=== PATIENT | female | born 1985 | race African-American/Black ===

== ENCOUNTER 2016-08-25 16:12 | Emergency (ER) | payer SELFPAY ==
[~2016-08-25] VITALS: Ht 160 cm; Wt 79.0 kg
[2016-08-25 16:14] VITALS: BP 123/74; PULSE 92; RESP 14; TEMP 98.1; O2SAT 100
[2016-08-25 17:27] LABS: AUTOMATED NEUTROPHIL # 6.5 TH/MM3 (1.8-7.7); BASOPHIL # 0.1 TH/MM3 (0-0.2); BASOPHIL % 0.6 % (0.0-2.0); EOSINOPHIL # 0.3 TH/MM3 (0-0.4); EOSINOPHIL % 2.4 % (0.0-4.0); HEMATOCRIT 36.4 % (35.0-46.0); HEMO FLAGS DIFF FINAL; LYMPH % 30.6 % (9.0-44.0); LYMPHOCYTE # 3.5 TH/MM3 (1.0-4.8); MEAN CELL VOLUME 86.9 FL (80.0-100.0); MEAN CORPUSCULAR HEMOGLOBIN 28.1 PG (27.0-34.0); MEAN CORPUSCULAR HGB CONC 32.3 % (32.0-36.0); NEUT % 56.4 % (16.0-70.0); PLATELET COUNT 281 TH/MM3 (150-450); RED BLOOD COUNT 4.19 MIL/MM3 (4.00-5.30); RED CELL DISTRIBUTION WIDTH 13.2 % (11.6-17.2); WHITE BLOOD COUNT 11.6 TH/MM3 (4.0-11.0)
[2016-08-25 17:30] LABS: BACTERIA, URINE OCC /hpf; BLOOD, URINE LARGE (NEG); COMMENT (UR) CULT NOT INDICATED; CULTURE IF INDICATED CULT NOT INDICATED; GLUCOSE,URINE NEG (NEG); KETONE, URINE NEG (NEG); MUCUS URINE FEW /lpf (OCC); NITRITE,URINE NEG (NEG); SQUAMOUS EPITHELIAL CELL URINE 9 /hpf (0-5); URINE COLOR YELLOW (YELLW/STRAW)
--- NOTE | 2016-08-25 17:33 | PD ---
HPI Chief Complaint: Related Problem Time Seen by Provider: 17:29 Travel History International Travel<30 days: No Contact w/Intl Traveler<30days: No Traveled to known affect area: No History of Present Illness HPI 31-year-old female that presents to the ED for evaluation of bleeding and back pain for the past 2 days and . Per patient for last menstrual period was in mid June. Per patient she was late on her period and she did apparently test that was positive today. Per patient she started bleeding yesterday. Per patient she had a miscarriage of twins about a year ago. Per patient she is concerned she might have the same today. Per patient bleeding yesterday was small but today's more. She denies any clots. She denies any chest pain or shortness of breath. Per patient the back pain is like an ache and she took some Advil to help with the pain as she didn't know she was . She has not seen anybody for this. The pain is 3 out of 10. No urinary symptoms. No bowel movement issues. Allergies to peanuts. Nothing makes the pain better or worse. PFSH Past Medical History ?: LMP: 07/13/16 Social History Alcohol Use: No Tobacco Use: No Substance Use: No Allergies-Medications (Allergen,Severity, Reaction): Coded Allergies: PEANUTS (Verified Allergy, Unknown, 08/25/16) Review of Systems General / Constitutional: No: Fever, Chills, Weight Gain, Weight Loss, Other Eyes: No: Diploplia, Blurred Vision, Photophobia, Drainage, Redness, Foreign Body Sensation, Pain, Tearing, Blind Spots, Visual changes, Blindness, Other HENT: No: Headaches, Vertigo, Lightheadedness, Sore Throat, Rhinitis, Rhinorrhea, Congestion, Nosebleed, Neck Stiffness, Neck Pain, Masses, Gingival Bleeding, Dental Difficulties, Ear Discharge, Earache, Other Cardiovascular: No: Chest Pain or Discomfort, Palpitations, Irregular Rhythm, Tachycardia, Diaphoresis, Syncope, Dyspnea on exertion, Varicosities, Edema, Cyanosis, Varicosities, Phlebitis, Claudication, Other Respiratory: No: Cough, Shortness of Breath, Wheezing, Sneezing, Orthopnea, Hemoptysis, Stridor, Night Sweats, Pleuritic Pain, Other Gastrointestinal: No: Nausea, Vomiting, Diarrhea, Abdominal Pain, Hematemesis, Hematochezia, Constipation, Changes in Bowel Habits, Indigestion, Dysphagia, Loss of Appetite, Other Genitourinary: Positive: Pelvic Pain, Vaginal Bleeding, No: Urgency, Frequency , Dysuria, Nocturia, Hematuria, Decreased Urinary Output, Oliguria, Hesitancy, Dribbling, Incontinence, Flank Pain, Dyspareunia, Discharge, Dysmenorrhea, Menorrhagia, Metorrhagia, Other Musculoskeletal: No: Myalgias, Arthralgias, Limited ROM, Weakness, Cramping, Edema, Pain, Atrophy, Other Skin: No Rash, No Itching, No Dryness, No Lumps, No Hives, No Change in Pigmentation, No Change in nails, No Alopecia, No Lesions, No Breast Lumps, No Breast Tenderness, No Breast Swelling, No Other Neurologic: No: Weakness, Dizziness, Syncope, Focal Abnormalities, Coordination Problem, Tremor, Ataxia, Headache, Change in Mentation, Slurred Speech, Paresthesia, Incontinence, Seizures, Sensory Disturbance, Other Psychiatric: No: Anxiety, Depression, Suicidal Ideations, Disorder of Thought, Mood Disorder, Substance Abuse, Homicidal Ideation, Other Endocrine: No: Heat Intolerance, Cold Intolerance, Polyuria, Polydipsia, Other Hematologic/Lymphatic: No: Easy Bruising, Lymph Node Enlargement, Other Physical Exam Narrative GENERAL: SKIN: Warm and dry. HEAD: Atraumatic. Normocephalic. EYES: Pupils equal and round. No scleral icterus. No injection or drainage. ENT: No nasal bleeding or discharge. Mucous membranes pink and moist. Tongue is midline. No blood deviation. NECK: Trachea midline. No JVD. CARDIOVASCULAR: Regular rate and rhythm. No murmurs, S3, S4. RESPIRATORY: No accessory muscle use. Clear to auscultation. Breath sounds equal bilaterally. GASTROINTESTINAL: Abdomen soft, non-tender, nondistended. Hepatic and splenic margins not palpable. MUSCULOSKELETAL: Extremities without clubbing, cyanosis, or edema. No obvious deformities. Full range of motion of the upper and lower extremities bilaterally. 2+ pulses bilaterally. NEUROLOGICAL: Awake and alert. No obvious cranial nerve deficits. Motor grossly within normal limits. Five out of 5 muscle strength in the arms and legs. Normal speech. PSYCHIATRIC: Appropriate mood and affect; insight and judgment normal. Data Data Last Documented VS Vital Signs Date Time Temp Pulse Resp B/P Pulse Ox O2 Delivery O2 Flow Rate FiO2 08/25/16 18:39 78 18 121/71 98 Room Air 08/25/16 16:14 98.1 Orders Beta Hcg (Quant/Titer) (08/25/16 16:50) Complete Blood Count With Diff (08/25/16 16:50) Basic Metabolic Panel (Bmp) (08/25/16 16:50) Type And Screen (08/25/16 16:50) Us Pelvis (Ques Pr/Ect)W Trans (08/25/16 ) Urinalysis - C+S If Indicated (08/25/16 16:50) Ed Urine Pregnancytest Poc (08/25/16 16:50) Ceftriaxone Inj (Rocephin Inj) (08/25/16 18:15) Labs Laboratory Tests Test 08/25/16 08/25/16 17:08 17:15 Urine Color YELLOW Urine Turbidity HAZY Urine pH 6.0 Urine Specific [place] 1.019 Urine Protein TRACE mg/dL Urine Glucose (UA) NEG mg/dL Urine Ketones NEG mg/dL Urine Occult Blood LARGE Urine Nitrite NEG Urine Bilirubin NEG Urine Urobilinogen LESS THAN 2.0 MG/DL Urine Leukocyte Esterase SMALL Urine RBC /hpf Urine WBC 8 /hpf Urine Squamous Epithelial 9 /hpf Cells Urine Bacteria OCC /hpf Urine Mucus FEW /lpf Microscopic Urinalysis Comment CULT NOT INDICATED White Blood Count 11.6 TH/MM3 Red Blood Count 4.19 MIL/MM3 Hemoglobin 11.8 GM/DL Hematocrit 36.4 % Mean Corpuscular Volume 86.9 FL Mean Corpuscular Hemoglobin 28.1 PG Mean Corpuscular Hemoglobin 32.3 % Concent Red Cell Distribution Width 13.2 % Platelet Count 281 TH/MM3 Mean Platelet Volume 9.3 FL Neutrophils (%) (Auto) 56.4 % Lymphocytes (%) (Auto) 30.6 % Monocytes (%) (Auto) 10.0 % Eosinophils (%) (Auto) 2.4 % Basophils (%) (Auto) 0.6 % Neutrophils # (Auto) 6.5 TH/MM3 Lymphocytes # (Auto) 3.5 TH/MM3 Monocytes # (Auto) 1.2 TH/MM3 Eosinophils # (Auto) 0.3 TH/MM3 Basophils # (Auto) 0.1 TH/MM3 CBC Comment DIFF FINAL Differential Comment Sodium Level 135 MEQ/L Potassium Level 3.5 MEQ/L Chloride Level 102 MEQ/L Carbon Dioxide Level 25.5 MEQ/L Anion Gap 8 MEQ/L Blood Urea Nitrogen 12 MG/DL Creatinine 0.97 MG/DL Estimat Glomerular Filtration 80 ML/MIN Rate Random Glucose 79 MG/DL Calcium Level 9.1 MG/DL Human Chorionic Gonadotropin, 2128 MIU/ML Quant Blood Type O POSITIVE Antibody Screen NEGATIVE Blood Bank Comment MDM Medical Decision Making Medical Screen Exam Complete: Yes Emergency Medical Condition: Yes Medical Record Reviewed: Yes Interpretation(s) CBC & BMP Diagram 08/25/16 17:15 Beta of 1999. Last Impressions Pelvis Ultrasound 08/25/16 0000 Signed Impressions: Service Date/Time: Thursday, August 25, 2016 17:38 - CONCLUSION: Intrauterine gestational sac containing a pole as described above. Heart motion cannot be detected. Short-term followup is recommended. No evidence of complex adnexal masses. Shakeel Arnold MD UA shows signs of UTI Differential Diagnosis Bleeding versus miscarriage versus bleeding during versus back pain versus UTI Narrative Course 31-year-old female that presents to the ED for evaluation of bleeding and possible . Patient was properly examined and was found to have signs and symptoms consistent with with bleeding. Concern for miscarriage. Patient has had this in the past. Labs and imaging ordered. Labs and imaging were essentially unremarkable other than for . Ultrasound did show IUP but no obvious heart rate noted. Case was discussed in my attending who agrees with plan. Recommendation is for patient to come back in 2 days for recheck. Patient agrees to this. Patient will be given prescription for Keflex for her UTI. Told to take Tylenol for pain. See ED for any worsening symptoms. Follow up with TECHNOLOGY INTEGRATION SPECIALIST. Diagnosis Primary Impression: First trimester bleeding Patient Instructions: General Instructions Additional Instructions: Get recheck of blood BETAHCG in 2 days for reevaluation. Only take Tylenol. vitamins. Take medication as prescribed. See ED for any worsening symptoms. Med/Other Pt SpecificInfo: Prescription(s) given Disposition: 01 DISCHARGE HOME Condition: Stable Yfn Watson Aug 25, 2016 17:33
[2016-08-25 17:42] LABS: BICARBONATE 25.5 MEQ/L (21.0-32.0); POTASSIUM 3.5 MEQ/L (3.5-5.1)
[2016-08-25] MEDS ORDERED: cefTRIAXone INJ 1,000 MG in SODIUM CHLORIDE 0.9% INJ 100 ML IV ONE (18:15)
[2016-08-25 18:39] VITALS: BP 121/71; PULSE 78; RESP 18; O2SAT 98
--- NOTE | 2016-08-25 19:06 | RADRPT ---
EXAM DATE/TIME: 08/25/2016 17:38 [facility] COMPARISON: No previous studies available for comparison. INDICATIONS : Bleeding. LAB(S): Beta-hC MEDICAL HISTORY : . SURGICAL HISTORY : None. ENCOUNTER: Initial ACUITY: 1 day PAIN SCORE: 7/10 LOCATION: Bilateral pelvis MEASUREMENTS: UTERUS: 8.1 x 4.7 x 4.5 cm ENDOMETRIAL STRIPE: 19 mm RIGHT OVARY: 2.8 x 1.9 x 1.8 cm LEFT OVARY: 2.3 x 1.2 x 1.1 cm FINDINGS: Intrauterine gestational sac containing a pole is identified. The crown-rump length is 0.57 cm compatible with a gestational age of 6 weeks and 2 days. heart motion could not be detected. Ovaries are unremarkable. No significant fluid is seen in the cul-de-sac. CONCLUSION: Intrauterine gestational sac containing a pole as described above. Heart motion cannot be detected. Short-term followup is recommended. No evidence of complex adnexal masses. Shakeel Arnold MD on August 25, 2016 at 19:00 Board Certified Radiologist. This report was verified electronically.
[2016-08-25] MEDS ORDERED: CEPH-460 PO (19:58)
== END 2016-08-25 21:29 | disposition home or self-care (01) ==
LOC: NEPE 16:12
DX: O46.91 Antepartum hemorrhage, unspecified, first trimester (principal); M54.9 Dorsalgia, unspecified; Z3A.00 Weeks of gestation of pregnancy not specified
CPT/HCPCS: 76700; 76817; 80048; 81001; 84702; 84703; 85025; 86850; 86900; 86901; 96374; 99284; J0696

== ENCOUNTER 2016-09-29 11:05 | Emergency (ER) | payer SELFPAY ==
[~2016-09-29] VITALS: Ht 160 cm; Wt 78.0 kg
[~2016-09-29 11:05] MED LIST: CEPH-460 PO
[2016-09-29 11:07] VITALS: BP 126/78; PULSE 70; RESP 20; TEMP 97.9; O2SAT 100
--- NOTE | 2016-09-29 11:47 | PD ---
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 NO F/C, NO N/V. NO ABD OR PELVIC PAIN. VSS. AWAITING BED PLACEMENT. Data Data Last Documented VS Vital Signs Date Time Temp Pulse Resp B/P Pulse Ox O2 Delivery O2 Flow Rate FiO2 09/29/16 11:07 97.9 70 20 126/78 100 Room Air [facility] Medical Record Reviewed: Yes Supervised Visit with RODRIGO: Yes Mehdi Lovett Sep 29, 2016 11:47
--- NOTE | 2016-09-29 15:12 | PD ---
HPI Chief Complaint: Related Problem Time Seen by Provider: 14:57 Travel History International Travel<30 days: No Contact w/Intl Traveler<30days: No Traveled to known affect area: No History of Present Illness HPI The patient was seen and examined in the presence of the nurse. This patient complains of vaginal spotting. Duration is one day. He is not having pelvic pain or presyncopal symptoms. She thinks that she is 12 weeks , she is missed 3 menstrual periods. She is not had any care. She is from [place] and heading back there later this month. Severity is mild. No alleviating factors. PFSH Past Medical History Diminished Hearing: No Tetanus Vaccination: > 5 Years Influenza Vaccination: Yes ?: : 2 : 1 Past Surgical History Gynecologic Surgery: Yes Social History Alcohol Use: No Tobacco Use: No Substance Use: No Allergies-Medications (Allergen,Severity, Reaction): Coded Allergies: PEANUTS (Verified Allergy, Severe, itching, 09/29/16) Reported Meds & Prescriptions Reported Meds & Active Scripts Active No Active Prescriptions or Reported Medications Review of Systems General / Constitutional: No: Fever Eyes: No: Visual changes HENT: No: Headaches Cardiovascular: No: Chest Pain or Discomfort Respiratory: No: Shortness of Breath Gastrointestinal: No: Abdominal Pain Genitourinary: Positive: Vaginal Bleeding, No: Dysuria Musculoskeletal: No: Pain Skin: No Rash Neurologic: No: Weakness Psychiatric: No: Depression Endocrine: No: Polydipsia Hematologic/Lymphatic: No: Easy Bruising Physical Exam Narrative GENERAL: Well-nourished, well-developed patient in no apparent distress. SKIN: Focused skin assessment reveals no rash and nodules. Skin is Warm and dry. HEAD: Atraumatic. Normocephalic. EYES: Pupils equal and round. No scleral icterus. No injection or drainage. ENT: No nasal bleeding or discharge. Mucous membranes pink and moist. NECK: Trachea midline. No JVD. CARDIOVASCULAR: Regular rate and rhythm. No murmur appreciated. RESPIRATORY: No accessory muscle use. Clear to auscultation. Breath sounds equal bilaterally. GASTROINTESTINAL: Abdomen soft, non-tender, nondistended. Hepatic and splenic margins not palpable. MUSCULOSKELETAL: No obvious deformities. No clubbing. No cyanosis. No edema. NEUROLOGICAL: Awake and alert. No obvious cranial nerve deficits. Motor grossly within normal limits. Normal speech. PSYCHIATRIC: Appropriate mood and affect; insight and judgment normal. Data Data Last Documented VS Vital Signs Date Time Temp Pulse Resp B/P Pulse Ox O2 Delivery O2 Flow Rate FiO2 09/29/16 14:59 17 09/29/16 11:07 97.9 70 126/78 100 Room Air Orders Iv Access Insert/Monitor (09/29/16 15:23) Complete Blood Count With Diff (09/29/16 15:23) Beta Hcg (Quant/Titer) (09/29/16 15:23) Labs Laboratory Tests Test 09/29/16 15:25 White Blood Count 10.8 TH/MM3 Red Blood Count 4.66 MIL/MM3 Hemoglobin 13.0 GM/DL Hematocrit 40.7 % Mean Corpuscular Volume 87.3 FL Mean Corpuscular Hemoglobin 27.9 PG Mean Corpuscular Hemoglobin 32.0 % Concent Red Cell Distribution Width 12.9 % Platelet Count 271 TH/MM3 Mean Platelet Volume 10.3 FL Neutrophils (%) (Auto) 56.7 % Lymphocytes (%) (Auto) 28.6 % Monocytes (%) (Auto) 10.8 % Eosinophils (%) (Auto) 3.3 % Basophils (%) (Auto) 0.6 % Neutrophils # (Auto) 6.1 TH/MM3 Lymphocytes # (Auto) 3.1 TH/MM3 Monocytes # (Auto) 1.2 TH/MM3 Eosinophils # (Auto) 0.4 TH/MM3 Basophils # (Auto) 0.1 TH/MM3 CBC Comment DIFF FINAL Differential Comment Human Chorionic Gonadotropin, LESS THAN 1 Quant MIU/ML MDM Medical Decision Making Medical Screen Exam Complete: Yes Emergency Medical Condition: Yes Medical Record Reviewed: Yes Differential Diagnosis Ectopic , threatened , spontaneous miscarriage Narrative Course I have reviewed the patient's electronic medical record. Patient was here June 24, 2017 and had an Rh of O+. She also had an ultrasound revealing an intrauterine pole but no heart rate could be detected. She was supposed to come back in 2 days but she never did. Beta titer was 2128 at that time IV placed CBC is normal Beta titer is less than 1 I did a bedside transabdominal ultrasound prior to the lab studies being done.. I could not definitively identify an intrauterine fetus. 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 Diagnosis Primary Impression: Spontaneous miscarriage Additional Impression: Vaginal bleeding Additional Instructions: The patient was advised to follow up with their physician and return if they worsen. Med/Other Pt SpecificInfo: Other Scripts No Active Prescriptions or Reported Meds Disposition: 01 DISCHARGE HOME Condition: Stable Lui Mccollum MD Sep 29, 2016 15:12
[2016-09-29 16:07] LABS: AUTOMATED NEUTROPHIL # 6.1 TH/MM3 (1.8-7.7); BASOPHIL # 0.1 TH/MM3 (0-0.2); BASOPHIL % 0.6 % (0.0-2.0); EOSINOPHIL # 0.4 TH/MM3 (0-0.4); EOSINOPHIL % 3.3 % (0.0-4.0); HEMATOCRIT 40.7 % (35.0-46.0); HEMO FLAGS DIFF FINAL; LYMPH % 28.6 % (9.0-44.0); LYMPHOCYTE # 3.1 TH/MM3 (1.0-4.8); MEAN CELL VOLUME 87.3 FL (80.0-100.0); MEAN CORPUSCULAR HEMOGLOBIN 27.9 PG (27.0-34.0); MONO % 10.8 % (0.0-8.0); NEUT % 56.7 % (16.0-70.0); PLATELET COUNT 271 TH/MM3 (150-450); RED BLOOD COUNT 4.66 MIL/MM3 (4.00-5.30); RED CELL DISTRIBUTION WIDTH 12.9 % (11.6-17.2); WHITE BLOOD COUNT 10.8 TH/MM3 (4.0-11.0)
[2016-09-29 16:39] LABS: BETA HCG QUANT LESS THAN 1 MIU/ML (0-5)
[2016-09-29 17:00] VITALS: BP 128/81; PULSE 74; RESP 20; TEMP 97.9; O2SAT 100
== END 2016-09-29 17:23 | disposition home or self-care (01) ==
LOC: NEPA 11:05
DX: O03.9 Complete or unspecified spontaneous abortion without complication (principal)
CPT/HCPCS: 84702; 85025; 99284